=== PATIENT | female | born 1995 | race Caucasian/White ===

== ENCOUNTER 2025-03-13 07:05 | Emergency (ER) | payer OTHER ==
[~2025-03-13] VITALS: Ht 165.1 cm; Wt 63.5 kg
[~2025-03-13 07:05] MED LIST: ACETAMINOPHEN500 MG PO; ASPI81CH PO; Cipro500 MG PO; IBUP600 PO; MEDR150I IM; NORETHTP TOP; PROG100 PO; Zofran Odt4 MG PO; Zofran8 MG PO
[2025-03-13 07:20] VITALS: BP 139/86
[2025-03-13] MEDS ORDERED: Prednisone20 MG PO (09:00)
[2025-03-13] MEDS ORDERED: Methocarbamol500 MG PO (09:00)
== END 2025-03-13 09:15 | disposition home or self-care (01) ==
LOC: ER 07:05
DX: M54.50 Low back pain, unspecified (principal); M62.830 Muscle spasm of back; F17.210 Nicotine dependence, cigarettes, uncomplicated; Z79.899 Other long term (current) drug therapy
CPT/HCPCS: 72100; 99283-25; A9270